=== PATIENT | female | born 1985 | race Caucasian/White ===

== ENCOUNTER 2025-01-22 09:43 | Emergency (ER) | payer OTHER, SELFPAY ==
[2025-01-22] VITALS (23 sets, daily range): BP systolic 101–161; BP diastolic 51–74; PULSE 49–72; RESP 11–20; TEMP 36.7; O2SAT 97–100; BMI 60.7
--- NOTE | 2025-01-22 09:52 | EKG_ITS ---
[address] [id number] [address] [address] Test Date: 2025-01-22 Pat Name: July Caryn Department: Room: Gender: Female Parts Manager: SAIGE : 1985 Requested By: Order Number: [id number] Reading MD: Sundeep Mccullough Measurements Intervals [place] Rate: 48 P: 67 NH: 134 QRS: 13 QRSD: 90 T: 22 QT: 448 QTc: 400 Interpretive Statements Sinus bradycardia Electronically Signed On 01-23-2025 10:28:12 PDT by Sundeep Mccullough
--- NOTE | 2025-01-22 09:52 | DI.RAD.S_ITS ---
PROCEDURE: XR CHEST 1V INDICATIONS: Chest Pain TECHNIQUE: One view of the chest was acquired. COMPARISON: None. FINDINGS: Mild bilateral diffuse peribronchial thickening with mild patchy lower lobe opacities, some of which may be related expiratory result; however, bronchitis, viral infection, bronchopneumonia, asthma or other process should be considered. Follow-up suggested. Mild bibasilar subsegmental atelectasis. Cardiopericardial silhouette and pulmonary vasculature within normal limits. No pneumothorax, no pleural effusion, no lobar consolidation. IMPRESSION: Peribronchial thickening and patchy opacities as discussed above. Follow-up suggested. If symptoms persist or worsen, or there is high clinical suspicion of thoracic abnormality, CT chest could be performed. Dictated by: Moisés Queen M.D. on 01/22/2025 at 10:27 Approved by: Moisés Queen M.D. on 01/22/2025 at 10:38
[2025-01-22 10:08] LABS: Add Manual Diff / Slide Review NO; Hematocrit 36.7 % (36-46); Hemoglobin 12.4 g/dL (12.0-16.0); Lymphocytes Absolute Auto 1200 /uL (1100-4500); Mean Corpuscular HGB Conc 33.7 % (30-36); Mean Corpuscular Hemoglobin 30.5 PG (26-34); Mean Corpuscular Volume 90.3 fL (80-100); Platelet Count 192 X10^3/uL (150-400)
[2025-01-22] MEDS: MORPHINE 4 MG/ML INJ IV ×2 (10:13→11:58)
[2025-01-22 10:17] LABS: Appearance Urine UA CLEAR; Bilirubin Urine UA NEGATIVE (NEGATIVE); Color Urine UA YELLOW; Glucose Urine UA NEGATIVE (Negative); Ketones Urine UA NEGATIVE (NEGATIVE); Leukocyte Esterase Urine UA NEGATIVE (NEGATIVE); Nitrite Urine UA NEGATIVE (Negative); Occult Blood Urine UA NEGATIVE (Negative); Protein Urine UA NEGATIVE (Negative); Specific Gravity Urine UA <=1.005 (1.000-1.035); Urobilinogen Urine UA 0.2 E.U./dL (0.2)
[2025-01-22 10:19] LABS: INR 1.0 (0.9-1.3); Prothrombin Time 11.5 SECONDS (9.4-12.5)
[2025-01-22 10:21] LABS: PTT Partial Thromboplastin Tim 32 SECONDS (25.1-36.5)
[2025-01-22 10:21] LABS: pH Urine UA 7.0 (4.5-8.0)
[2025-01-22 10:24] LABS: Culture Indicated Urine Cult Not Indicated
[2025-01-22 10:26] LABS: Alanine Aminotransferase 18 IU/L (<35); Albumin 4.0 g/dL (3.5-5.0); Albumin Globulin Ratio 1.4 (1.0-2.8); Alkaline Phosphatase 67 U/L (38-126); Blood Urea Nitrogen 14 mg/dL (7-17); Calcium 8.5 mg/dL (8.4-10.2); Carbon Dioxide 26 mmol/L (22-32); Chloride 104 mmol/L (98-107); Creatine Kinase 41 U/L (30-135); Estimated Glomerular Filt Rate > 60 mL/min (>60); Globulin 2.8 g/dL (1.7-4.1); Glucose 94 mg/dL (70-99); HEMOLYSIS 30 (0-50); Lipase 79 U/L (23-300); Magnesium 2.2 mg/dL (1.6-2.3); Potassium 4.4 mmol/L (3.4-5.1); Sodium 135 mmol/L (137-145); Total Protein 6.8 g/dL (6.3-8.2)
[2025-01-22 10:38] LABS: NT-proBNP (BNP-Adult 18+) 252 pg/mL (<125); Troponin I < 0.012 ng/mL (0.01-0.034)
--- NOTE | 2025-01-22 11:15 | ED_ITS ---
HPI - Chest Pain General Chief Complaint: Chest Pain Stated Complaint: Chest Pain Source: patient and EMS Mode of arrival: EMS Limitations: no limitations History of Present Illness HPI narrative: 39-year-old female history of appendectomy, , tubal ligation, presents with midsternal chest pain this morning while she was getting to work and still continue while at work described as pressure-like sensation with sharp pains midsternal region with no radiating symptoms. She denies nausea vomiting diarrhea abdominal pain back pain diaphoresis fever chills body ache. Nothing makes it better or worse. Other than what is stated 14 point review of system is negative. Related Data Home Medications ?Medication ?Instructions ?Recorded ?Confirmed albuterol sulfate 90 mcg/actuation ##0 02/04/11 aerosol inhaler (Ventolin HFA) Previous Rx's ?Medication ?Instructions ?Recorded amoxicillin 875 mg-potassium 1 tab PO BID 10 days #20 tabs 01/22/25 clavulanate 125 mg tablet azithromycin 250 mg tablet See Rx Instructions PO .COM PLEX 5 01/22/25 days #6 tabs Allergies Allergy/AdvReac Type Severity Reaction Status Date / Time codeine Allergy Unknown Verified 01/22/25 09:52 Review of Systems Review of Systems ROS Unobtainable: All systems reviewed & are unremarkable except as noted in HPI and below Patient History Social History Smoking Status: Unknown if ever smoked Smoking Status: Unknown if ever smoked Exam Narrative Exam Narrative: GENERAL: [39] year old patient appears stated age. Well-developed patient, in mild distress. HEAD: Atraumatic. Normocephalic. EYES: Pupils equal round and reactive. Extraocular motions intact. No scleral icterus. No injection or drainage. ENT: Nose without bleeding, purulent drainage. Throat without erythema, tonsillar hypertrophy or exudate. Airway patent. NECK: Trachea midline. Non tender CARDIOVASCULAR: Regular rate and rhythm without murmurs, gallops, or rubs. RESPIRATORY: Clear to auscultation. Breath sounds equal bilaterally. No wheezes, rales, or rhonchi. GASTROINTESTINAL: Abdomen soft, non-tender, nondistended. EXTREMITIES: No edema or joint tenderness. BACK: Nontender without deformity or crepitance. No flank tenderness. NEURO: AOx3. SKIN: No rash or erythema of visible areas Initial Vital Signs Initial Vital Signs: Vital Signs Temperature 98.1 F 01/22/25 09:52 Pulse Rate 54 L 01/22/25 09:52 Respiratory Rate 18 01/22/25 09:52 Blood Pressure 148/68 H 01/22/25 09:52 Pulse Oximetry 100 01/22/25 09:52 Oxygen Delivery Method Room Air 01/22/25 09:52 Course Orders Ordered: ED Orders 01/22/25 12:00 Troponin I Stat 01/22/25 13:10 Blood Culture Stat Lactate (Lactic Acid) Stat Discontinued Medications Ceftriaxone Sodium 1,000 mg/ (Sodium Chloride) 100 mls @ 200 mls/hr IV NOW ONE Stop: 01/22/25 12:37 Last Infusion: 01/22/25 14:20 Dose: Infused Documented By: Admin: 01/22/25 13:13 Dose: 200 mls/hr Documented By: ROSELYN Azithromycin 500 mg/ Dextrose 250 mls @ 250 mls/hr IV NOW ONE Stop: 01/22/25 12:37 Last Infusion: 01/22/25 15:29 Dose: Infused Documented By: Admin: 01/22/25 14:21 Dose: 250 mls/hr Documented By: LAUREN Morphine Sulfate (Morphine 4 Mg/Ml Inj) 4 mg IV NOW ONE Stop: 01/22/25 10:08 Last Admin: 01/22/25 10:13 Dose: 4 mg Documented By: ROSELYN Morphine Sulfate (Morphine 4 Mg/Ml Inj) 4 mg IV NOW ONE Stop: 01/22/25 11:16 Last Admin: 01/22/25 11:58 Dose: 4 mg Documented By: LAUREN Vital Signs Vital signs: Vital Signs - 8 hr 01/22/25 12:59 01/22/25 12:59 01/22/25 13:00 Pulse Rate 58 L 63 Respiratory Rate 16 18 Blood Pressure 137/63 Pulse Oximetry 98 98 Oxygen Delivery Method 01/22/25 13:00 01/22/25 13:15 01/22/25 13:15 Pulse Rate 60 Respiratory Rate 19 Blood Pressure 134/60 153/67 H Pulse Oximetry 98 Oxygen Delivery Method 01/22/25 13:30 01/22/25 13:30 01/22/25 13:45 Pulse Rate 69 55 L Respiratory Rate 17 17 Blood Pressure 129/58 L Pulse Oximetry 97 98 Oxygen Delivery Method 01/22/25 13:45 01/22/25 14:00 01/22/25 14:01 Pulse Rate 59 L 56 L Respiratory Rate 16 15 Blood Pressure 154/67 H Pulse Oximetry 97 98 Oxygen Delivery Method 01/22/25 14:01 01/22/25 14:15 01/22/25 14:15 Pulse Rate 58 L Respiratory Rate 18 Blood Pressure 122/59 L 124/62 Pulse Oximetry 97 Oxygen Delivery Method Room Air 01/22/25 14:30 01/22/25 14:30 01/22/25 14:45 Pulse Rate 65 71 Respiratory Rate 18 17 Blood Pressure 128/61 Pulse Oximetry 97 98 Oxygen Delivery Method 01/22/25 14:45 01/22/25 15:00 01/22/25 15:00 Pulse Rate 72 Respiratory Rate 20 Blood Pressure 101/53 L 105/51 L Pulse Oximetry 97 Oxygen Delivery Method 01/22/25 15:15 01/22/25 15:15 Pulse Rate 60 Respiratory Rate 16 Blood Pressure 122/58 L Pulse Oximetry 98 Oxygen Delivery Method Room Air MDM - Chest Pain Lab Data 01/22/25 10:01 01/22/25 10:01 Labs: Lab Results 01/22/25 01/22/25 01/22/25 Range/Units 10:01 10:05 12:00 WBC 10.7 (4.5-11.0) X10^3/uL RBC 4.06 (4.0-5.2) X10^6/uL Hgb 12.4 (12.0-16.0) g/dL Hct 36.7 (36-46) % MCV 90.3 (80-100) fL MCH 30.5 (26-34) PG MCHC 33.7 (30-36) % RDW 13.8 (11.6-14.8) % Plt Count 192 (150-400) X10^3/uL Neut % (Auto) 80.5 H (50-75) % Lymph % (Auto) 11.2 L (25-40) % [place] % (Auto) 5.4 (3-14) % Eos % (Auto) 2.4 (2-4) % Baso % (Auto) 0.5 (0-2) % Neut # (Auto) 8600 H (6736-5050) /uL Lymph # (Auto) 1200 (5659-4236) /uL [place] # (Auto) 600 (0-900) /uL Eos # (Auto) 300 (0-450) /uL Baso # (Auto) 0 (0-100) /uL PT 11.5 (9.4-12.5) SECONDS INR 1.0 (0.9-1.3) APTT 32 (25.1-36.5) SECONDS D-Dimer < 215 (<500) ng/ml Sodium 135 L (137-145) mmol/L Potassium 4.4 (3.4-5.1) mmol/L Chloride 104 (98-107) mmol/L Carbon Dioxide 26 (22-32) mmol/L BUN 14 (7-17) mg/dL Creatinine 0.61 (0.52-1.04) mg/dL Estimated GFR > 60 (>60) mL/min BUN/Creatinine Ratio 23.0 H (6-22) Glucose 94 (70-99) mg/dL Lactate (0.7-2.1) mmol/L Calcium 8.5 (8.4-10.2) mg/dL Magnesium 2.2 (1.6-2.3) mg/dL Total Bilirubin 0.3 (0.2-1.3) mg/dL AST 23 (14-36) IU/L ALT 18 (<35) IU/L Alkaline Phosphatase 67 (38-126) U/L Total Creatine Kinase 41 (30-135) U/L Troponin I < 0.012 < 0.012 (0.01-0.034) ng/mL NT-Pro-B Natriuret Pep 252 H (<125) pg/mL Total Protein 6.8 (6.3-8.2) g/dL Albumin 4.0 (3.5-5.0) g/dL Globulin 2.8 (1.7-4.1) g/dL Albumin/Globulin Ratio 1.4 (1.0-2.8) Lipase 79 (23-300) U/L Urine Color Yellow Urine Appearance Clear Urine pH 7.0 (4.5-8.0) Ur Specific [place] <=1.005 (1.000-1.035) Urine Protein Negative (Negative) Urine Glucose (UA) Negative (Negative) g/dL Urine Ketones Negative (NEGATIVE) Urine Occult Blood Negative (Negative) Urine Nitrate Negative (Negative) Urine Bilirubin Negative (NEGATIVE) Urine Urobilinogen 0.2 (0.2) E.U./dL Ur Leukocyte Esterase Negative (NEGATIVE) Urine RBC None seen (0-5/HPF) Urine WBC None seen (0-5/HPF) Ur Squamous Epith Cells 0-1 /hpf (0-5/HPF) Urine Bacteria None seen (None) Ur Culture Indicated? Cult not indicated Vol Urine Centrifuged 10ml (spun) 01/22/25 Range/Units 13:10 WBC (4.5-11.0) X10^3/uL RBC (4.0-5.2) X10^6/uL Hgb (12.0-16.0) g/dL Hct (36-46) % MCV (80-100) fL MCH (26-34) PG MCHC (30-36) % RDW (11.6-14.8) % Plt Count (150-400) X10^3/uL Neut % (Auto) (50-75) % Lymph % (Auto) (25-40) % [place] % (Auto) (3-14) % Eos % (Auto) (2-4) % Baso % (Auto) (0-2) % Neut # (Auto) (3075-9065) /uL Lymph # (Auto) (6980-3736) /uL [place] # (Auto) (0-900) /uL Eos # (Auto) (0-450) /uL Baso # (Auto) (0-100) /uL PT (9.4-12.5) SECONDS INR (0.9-1.3) APTT (25.1-36.5) SECONDS D-Dimer (<500) ng/ml Sodium (137-145) mmol/L Potassium (3.4-5.1) mmol/L Chloride (98-107) mmol/L Carbon Dioxide (22-32) mmol/L BUN (7-17) mg/dL Creatinine (0.52-1.04) mg/dL Estimated GFR (>60) mL/min BUN/Creatinine Ratio (6-22) Glucose (70-99) mg/dL Lactate < 0.5 L (0.7-2.1) mmol/L Calcium (8.4-10.2) mg/dL Magnesium (1.6-2.3) mg/dL Total Bilirubin (0.2-1.3) mg/dL AST (14-36) IU/L ALT (<35) IU/L Alkaline Phosphatase (38-126) U/L Total Creatine Kinase (30-135) U/L Troponin I (0.01-0.034) ng/mL NT-Pro-B Natriuret Pep (<125) pg/mL Total Protein (6.3-8.2) g/dL Albumin (3.5-5.0) g/dL Globulin (1.7-4.1) g/dL Albumin/Globulin Ratio (1.0-2.8) Lipase (23-300) U/L Urine Color Urine Appearance Urine pH (4.5-8.0) Ur Specific [place] (1.000-1.035) Urine Protein (Negative) Urine Glucose (UA) (Negative) g/dL Urine Ketones (NEGATIVE) Urine Occult Blood (Negative) Urine Nitrate (Negative) Urine Bilirubin (NEGATIVE) Urine Urobilinogen (0.2) E.U./dL Ur Leukocyte Esterase (NEGATIVE) Urine RBC (0-5/HPF) Urine WBC (0-5/HPF) Ur Squamous Epith Cells (0-5/HPF) Urine Bacteria (None) Ur Culture Indicated? Vol Urine Centrifuged Imaging Data CT scan - chest: Radiologist's Impression: [place] [address] CT Scan Report Signed Patient: CarynJuly MR#: [id number] : 1985 Acct:[id number] Age/Sex: 39 / F Date of Service: 01/22/25 Loc: ED Accession Number: [id number] Procedure: CT angio chest PE protocol Ordering Provider: Jayy Garcia D.O. PROCEDURE: CT ANGIO CHEST PE PROTOCOL INDICATIONS: chest pain sob TECHNIQUE: After the administration of intravenous contrast, 2 mm thick sections acquired from the pulmonary apices to the posterior costophrenic angles. 3-dimensional maximum intensity projection (MIP) coronal and sagittal reformats were then acquired through the thorax. For radiation dose reduction, the following was used: automated exposure control, adjustment of mA and/or kV according to patient size. COMPARISON: None. FINDINGS: Image quality: Limited due to artifacts related to patient motion, patient body habitus with low [id number]. Limited evaluation of the tertiary and distal pulmonary arteries. Pulmonary arteries: No gross filling defect to suggest pulmonary embolism. Large left adrenal nodule/mass measures up to 5.2 cm AP by 3.7 cm transverse by 4.3 cm cc maximal dimensions. Although commonly this may represent adrenal adenoma, metastasis or primary adrenal neoplasm could give this appearance and follow-up is needed. MRI adrenal protocol may be useful for further evaluation. Partially imaged left renal lesion left superior pole measuring approximately 3 cm commonly renal cyst not well evaluated on this chest exam. Mild cardiomegaly with four-chamber enlargement, mild pulmonary venous congestion. No pneumothorax, no pleural effusion, no focal consolidation, no abnormal pulmonary nodule, no pericardial effusion. Mild degenerative changes of the thoracic spine. Lower Neck: No enlarged lymph nodes. Thyroid: No CT evidence of thyroid nodule. Axillae: No enlarged lymph nodes. Chest Wall: Unremarkable. Thoracic Vessels: No aortic aneurysm. Mediastinum and [place]: No enlarged lymph nodes. Esophagus: No wall thickening. No hiatal hernia. IMPRESSION: Left adrenal mass up to 5.2 cm as discussed above. Follow-up is needed. Partially imaged left renal lesion 3 cm. No gross filling defect to suggest pulmonary embolism as discussed above, limited exam. Dictated by: Moisés uQeen M.D. on 01/22/2025 at 12:30 Approved by: Moisés Queen M.D. on 01/22/2025 at 12:36 ECG Data Interpretation: Sinus Jonathan HR 48 OH 134 QRS [address]-t wave change NO previous EKG to compare against MDM Narrative Medical decision making narrative: All lab work, vital signs, nurse triage note, medication list, previous ER visits, and all imaging studies reviewed. WBC 10.7 XII 0.4 platelet 192 INR 1.0 D-dimer less than 215 sodium 135 potassium 4.4 chloride 104 CO2 26 BUN 14 creatinine 0.61 who is 94 BNP 252. Chest x-ray show peribronchial thickening and patchy opacities as discussed above. 48 sinus bradycardia no STT wave changes. Ct Chest Left adrenal mass up to 5.2 cm as discussed above. Follow- up is needed. Partially imaged left renal lesion 3 cm.No gross filling defect to suggest pulmonary embolism as discussed above, limited exam. D/c home on augmentin and zithromax and to f/u with pcp regarding adrenal/ renal mass. Discharge Plan Departure Patient Disposition: Home Clinical Impression: Pneumonia, Left renal mass, Adrenal mass greater than 4 cm in diameter Instructions: DI for Pneumonia -- Adult Activity Restrictions/Additional Instructions: Return with new or worsening symptoms. Take your medicine as directed. Follow up with PCP regarding L renal mass 3cm and L adrenal mass 5.2cm. Call office for appointment. Prescriptions: New amoxicillin-pot clavulanate 875-125 mg tablet 1 tab PO BID 10 Days Qty: 20 0RF azithromycin 250 mg tablet See Rx Instructions .ROUTE .COMPLEX 5 Days Qty: 6 0RF Rx Instructions: For 250 mg dose pack: take 500 mg today (day 1), then 250 mg for 4 days (days 2-5) No Action albuterol sulfate [Ventolin HFA] 90 MCG/PUFF HFA aerosol inhaler Qty: 0 Stand Alone Forms: Patient Portal/API, Work Release Note
--- NOTE | 2025-01-22 11:31 | DI.CT.S_ITS ---
PROCEDURE: CT ANGIO CHEST PE PROTOCOL INDICATIONS: chest pain sob TECHNIQUE: After the administration of intravenous contrast, 2 mm thick sections acquired from the pulmonary apices to the posterior costophrenic angles. 3-dimensional maximum intensity projection (MIP) coronal and sagittal reformats were then acquired through the thorax. For radiation dose reduction, the following was used: automated exposure control, adjustment of mA and/or kV according to patient size. COMPARISON: None. FINDINGS: Image quality: Limited due to artifacts related to patient motion, patient body habitus with low [id number]. Limited evaluation of the tertiary and distal pulmonary arteries. Pulmonary arteries: No gross filling defect to suggest pulmonary embolism. Large left adrenal nodule/mass measures up to 5.2 cm AP by 3.7 cm transverse by 4.3 cm cc maximal dimensions. Although commonly this may represent adrenal adenoma, metastasis or primary adrenal neoplasm could give this appearance and follow-up is needed. MRI adrenal protocol may be useful for further evaluation. Partially imaged left renal lesion left superior pole measuring approximately 3 cm commonly renal cyst not well evaluated on this chest exam. Mild cardiomegaly with four-chamber enlargement, mild pulmonary venous congestion. No pneumothorax, no pleural effusion, no focal consolidation, no abnormal pulmonary nodule, no pericardial effusion. Mild degenerative changes of the thoracic spine. Lower Neck: No enlarged lymph nodes. Thyroid: No CT evidence of thyroid nodule. Axillae: No enlarged lymph nodes. Chest Wall: Unremarkable. Thoracic Vessels: No aortic aneurysm. Mediastinum and [place]: No enlarged lymph nodes. Esophagus: No wall thickening. No hiatal hernia. IMPRESSION: Left adrenal mass up to 5.2 cm as discussed above. Follow-up is needed. Partially imaged left renal lesion 3 cm. No gross filling defect to suggest pulmonary embolism as discussed above, limited exam. Dictated by: Moisés Queen M.D. on 01/22/2025 at 12:30 Approved by: Moisés Queen M.D. on 01/22/2025 at 12:36
[2025-01-22 12:45] LABS: Troponin I < 0.012 ng/mL (0.01-0.034)
--- NOTE | 2025-01-22 12:57 | PC.NURSE ---
Provider Jose would like blood cultures prior to administration of antibiotics. Order placed and lab called.
[2025-01-22 13:40] LABS: Lactate (Lactic Acid) < 0.5 mmol/L (0.7-2.1)
[2025-01-22] MEDS: AZITHROMYCIN 500 MG in DEXTROSE 5% IN WATER 250 ML 250 MG IV (14:21)
--- NOTE | 2025-01-22 14:27 | PC.NURSE ---
Patient reports worsening chest pain when my heart rate drops.
== END 2025-01-22 15:35 | disposition home or self-care (01) ==
PROVIDERS: Emergency Provider Family Medicine
DX: J18.9 Pneumonia, unspecified organism (principal); N28.89 Other specified disorders of kidney and ureter; E27.8 Other specified disorders of adrenal gland
CPT/HCPCS: 36415; 71045; 71275; 80053; 81001; 82550; 83605; 83690; 83735; 83880; 84484; 85025; 85379; 85610; 85730; 87040; 93005; 96365; 96367; 96375; 96376; 99284; J0696; J2272; J7050; J7060; Q9967